=== PATIENT | male | born 1935 | race Hispanic/Latino ===

== ENCOUNTER 2018-05-13 08:49 | Outpatient (CLI) | payer MEDICARE | END 2018-05-13 08:50 | disposition home or self-care (01) | LOC: C.RT 08:49 | DX: C64.1 Malignant neoplasm of right kidney, except renal pelvis (principal) ==

== ENCOUNTER 2018-05-18 08:53 | Outpatient (CLI) | payer MEDICARE | END 2018-05-18 08:54 | disposition home or self-care (01) | LOC: C.RADH 08:53 | DX: C64.2 Malignant neoplasm of left kidney, except renal pelvis (principal) ==

== ENCOUNTER 2018-06-14 06:37 | Inpatient (IN) | payer MEDICARE ==
[2018-05-18 09:08] VITALS: BMI 22.4
[2018-06-14] MEDS ORDERED: Bupivacaine HCl 0.5% PF (10 ml) Inj ONE (07:35)
[2018-06-14] MEDS ORDERED: ceFAZolin 1 gm in NS 2 GM/200 ML BAG IVPB ONE (07:35)
[2018-06-14] MEDS ORDERED: Propofol 10 mg/ml Inj (20 ML) ONE (08:25)
[2018-06-14] MEDS ORDERED: Midazolam 2 MG/2 ML VIAL ONE (08:26)
[2018-06-14] MEDS ORDERED: Lactated Ringer's 1,000 ML IV ONE (10:12)
[2018-06-14] MEDS ORDERED: Neostigmine 1:1000 (1 mg/ml) Inj ONE (10:15)
--- NOTE | 2018-06-14 10:31 | PCM.SURG1 ---
Surgeon's Initial Post Op Note - Surgeon's Notes Surgeon: Eda Tavera Manager Store: Loli Andrew Type of Anesthesia: General Endo Pre-Operative Diagnosis: L renal tumor Operative Findings: same Post-Operative Diagnosis: same Operation Performed: Robot-assisted, Left laparoscopic radical nephrectomy Specimen/Specimens Removed: L kidney Estimated Blood Loss: EBL {In ML}: 50 Blood Products Given: N/A Drains Used: No Drains Post-Op Condition: Good Date of Surgery/Procedure: 06/14/18 Time of Surgery/Procedure: 10:00
[2018-06-14] MEDS: Potassium Ch 20mEq in D5-1/2NS 1,000 ML IV SCH ×2 (17:00→20:19)
[2018-06-14] MEDS: Oxycodone/Acetaminophen 5/325 mg Tab PO PRN (18:19)
[2018-06-14] MEDS ORDERED: Pantoprazole 40 mg EC Tab PO STA (19:29)
[2018-06-14] MEDS ORDERED: Simethicone 80 mg Chewtab PO STA (19:34)
[2018-06-14] MEDS: Simethicone 80 mg Chewtab PO SCH (21:19)
--- NOTE | 2018-06-14 23:06 | CP.PCM.PN ---
Subjective - Date & Time of Evaluation Date of Evaluation: 06/14/18 Time of Evaluation: 19:00 - Subjective Subjective: Patient underwent robot-assisted laparoscopic radical left nephrectomy for a left rnal tumor this AM. Now alert, oriented, in no respiratory distress. Complaining of pain at the surgical site, and bloating. Objective - Vital Signs/Intake and Output Vital Signs (last 24 hours): Temp Pulse Resp BP Pulse Ox 97.9 F 106 H 20 159/70 H 96 06/14/18 18:26 06/14/18 18:26 06/14/18 20:00 06/14/18 18:26 06/14/18 18:26 Intake and Output: 06/14/18 06/15/18 18:59 06:59 Intake Total 1200 Output Total 654 30 Balance 546 -30 - Medications Medications: Current Medications Alprazolam (Xanax) 0.5 mg PO TID PRN PRN Reason: Anxiety Last Admin: 06/14/18 21:19 Dose: 0.5 mg Docusate Sodium (Colace) 100 mg PO TID [facility] Last Admin: 06/14/18 18:43 Dose: 100 mg Potassium Chloride/Dextrose/Sod Cl (Potassium Chl 20 Meq In D5-1/2ns) 1,000 mls @ 100 mls/hr IV .Q10H [facility] Last Admin: 06/14/18 20:19 Dose: Not Given Ceftriaxone Sodium 1 gm/ (Sodium Chloride) 100 mls @ 100 mls/hr IVPB DAILY [facility]; Protocol Oxycodone/Acetaminophen (Percocet 5/325 Mg Tab) 1 tab PO Q4H PRN PRN Reason: Pain, moderate (4-7) Stop: 06/17/18 15:03 Oxycodone/Acetaminophen (Percocet 5/325 Mg Tab) 2 tab PO Q4H PRN PRN Reason: Pain, severe (8-10) Stop: 06/17/18 15:04 Last Admin: 06/14/18 18:19 Dose: 2 tab Pantoprazole Sodium (Protonix Ec Tab) 40 mg PO DAILY [facility] Simethicone (Mylicon Chew Tab) 80 mg PO QID [facility] Last Admin: 06/14/18 21:19 Dose: 80 mg - Constitutional Appears: Well, No Acute Distress - Head Exam Head Exam: NORMAL INSPECTION - Eye Exam Eye Exam: Normal appearance Pupil Exam: NORMAL ACCOMODATION - ENT Exam ENT Exam: Normal Exam - Neck Exam Neck Exam: Normal Inspection - Respiratory Exam Respiratory Exam: Clear to Ausculation Bilateral, NORMAL BREATHING PATTERN - Cardiovascular Exam Cardiovascular Exam: Tachycardia, REGULAR RHYTHM - GI/Abdominal Exam GI & Abdominal Exam: Soft, Diminished Bowel Sounds - Rectal Exam Rectal Exam: Deferred - Exam Exam: NORMAL INSPECTION External exam: Lesions - Extremities Exam Extremities Exam: Normal Inspection - Back Exam Back Exam: tenderness Additional comments: Left flank tenderness. - Neurological Exam Neurological Exam: Alert, Awake, Oriented x3 - Psychiatric Exam Psychiatric exam: Anxious - Skin Skin Exam: Dry, Intact, Normal Color Assessment and Plan (1) Left renal mass Assessment & Plan: S/p robot-assisted laparoscospic left total nephrectomy. Awaiting path report. Status: Acute (2) Coronary artery disease Assessment & Plan: Stable. Status: Acute
[2018-06-15] MEDS: Oxycodone/Acetaminophen 5/325 mg Tab PO PRN ×4 (00:11→20:48)
[2018-06-15 07:01] LABS: HEMOGLOBIN 10.5 g/dL (12.0-18.0); MEAN CELL VOLUME 70.3 fL (80.0-94.0); MEAN CORPUSCULAR HEMOGLOBIN 21.6 pg (27.0-31.0); MEAN CORPUSCULAR HGB CONC 30.8 g/dL (33.0-37.0); RBC 4.86 Mil/uL (4.40-5.90); RED CELL DISTRIBUTION WIDTH 18.2 % (11.5-14.5); WHITE BLOOD COUNT 6.2 K/uL (4.8-10.8)
[2018-06-15 07:12] LABS: BLOOD UREA NITROGEN 14 mg/dL (9-20); CALCIUM 8.7 mg/dl (8.6-10.4); GFR NON-AFRICAN AMERICAN > 60
--- NOTE | 2018-06-15 07:23 | OP ---
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 PROCEDURE PERFORMED: Left radical nephrectomy and thrombectomy, modified 22 due to the complexity of the case. Took more than 20 minutes of my usual time. COMPLICATIONS: None. TYPE OF ANESTHESIA: General. PREOPERATIVE ANTIBIOTICS: Ancef. DESCRIPTION OF PROCEDURE: The patient was taken to the OR, placed in supine position. After anesthetic was obtained, the patient was placed in left lateral position and all the pressure points were well padded and secured and then the patient was prepped in the usual manner. Then, incision was made lateral to the umbilicus at the umbilical level and deep into the subcutaneous tissue and then insufflation was done. Then 8 mm robotic port, total of 4 was placed and one 12 mm port was placed, then robot was docked. Then, adhesions were taken down and the colon was mobilized and kidney was mobilized, and then lower pole was identified. Gonadal was identified, adrenal was identified and then renal hilum was identified. We went below the proximal to the gonadal vein to the insertion of the renal vein due to the thrombus that was at the level of the gonadal vein. Once that was freed, the renal vein was completely freed and mobilized more than 6 cm in length. Thrombus was clearly seen, the demarcation of the thrombus. At that point, we went ahead and found the artery. Renal artery was taken separately with a vascular stapler. Then, a thrombus wall was squeezed distally and then stapler was placed well below that and then the was as well. Then, adrenal was dropped and freed. There was no tumor involvement of the adrenal gland that is why we spared it and that was in the lower pole. Then, upper pole was completely mobilized laterally. The kidney was mobilized. Distally, gonadal was taken as well. Ureter was taken and then kidney was placed in the bag and then hemostasis was checked, there was no bleeding. Surgicel was placed for further hemostasis and then all the ports were removed under direct vision. Specimen was removed. Then, fascia was closed using #1 PDS. Skin was reapproximated with staple. The patient tolerated the procedure well without complication. Jose Tavera MD [facility] # [id number]
[2018-06-15] MEDS: Potassium Ch 20mEq in D5-1/2NS 1,000 ML IV SCH ×3 (08:57→20:32)
[2018-06-15] MEDS: Simethicone 80 mg Chewtab PO SCH ×4 (09:51→21:42)
[2018-06-15] MEDS: Pantoprazole 40 mg EC Tab PO SCH (09:52)
--- NOTE | 2018-06-15 22:56 | CP.PCM.PN ---
Subjective - Date & Time of Evaluation Date of Evaluation: 06/15/18 Time of Evaluation: 16:30 - Subjective Subjective: Patient still with pain at the surgical incision. Afebrile, with no BM. Objective - Vital Signs/Intake and Output Vital Signs (last 24 hours): Temp Pulse Resp BP Pulse Ox 97.5 F L 97 H 20 166/85 H 96 06/15/18 15:30 06/15/18 15:30 06/15/18 15:30 06/15/18 15:30 06/15/18 15:30 Intake and Output: 06/15/18 06/16/18 18:59 06:59 Intake Total 500 Output Total 1500 Balance -1000 - Medications Medications: Current Medications Alprazolam (Xanax) 0.5 mg PO TID PRN PRN Reason: Anxiety Last Admin: 06/15/18 20:29 Dose: 0.5 mg Docusate Sodium (Colace) 100 mg PO TID [facility] Last Admin: 06/15/18 17:53 Dose: 100 mg Potassium Chloride/Dextrose/Sod Cl (Potassium Chl 20 Meq In D5-1/2ns) 1,000 mls @ 100 mls/hr IV .Q10H [facility] Last Admin: 06/15/18 20:32 Dose: 100 mls/hr Ceftriaxone Sodium 1 gm/ (Sodium Chloride) 100 mls @ 100 mls/hr IVPB DAILY [facility]; Protocol Last Admin: 06/15/18 09:52 Dose: 100 mls/hr Oxycodone/Acetaminophen (Percocet 5/325 Mg Tab) 1 tab PO Q4H PRN PRN Reason: Pain, moderate (4-7) Stop: 06/17/18 15:03 Last Admin: 06/15/18 09:51 Dose: 1 tab Oxycodone/Acetaminophen (Percocet 5/325 Mg Tab) 2 tab PO Q4H PRN PRN Reason: Pain, severe (8-10) Stop: 06/17/18 15:04 Last Admin: 06/15/18 20:48 Dose: 2 tab Pantoprazole Sodium (Protonix Ec Tab) 40 mg PO DAILY [facility] Last Admin: 06/15/18 09:52 Dose: 40 mg Simethicone (Mylicon Chew Tab) 80 mg PO QID [facility] Last Admin: 06/15/18 21:42 Dose: 80 mg Tamsulosin HCl (Flomax) 0.4 mg PO BID [facility] - Labs Labs: 06/15/18 06:54 06/15/18 06:54 - Constitutional Appears: No Acute Distress - Head Exam Head Exam: NORMAL INSPECTION - Eye Exam Eye Exam: Normal appearance - ENT Exam ENT Exam: Normal Exam - Neck Exam Neck Exam: Normal Inspection - Respiratory Exam Respiratory Exam: Clear to Ausculation Bilateral, NORMAL BREATHING PATTERN - Cardiovascular Exam Cardiovascular Exam: REGULAR RHYTHM - GI/Abdominal Exam GI & Abdominal Exam: Soft, Tenderness, Hypoactive Bowel Sounds Additional comments: Tender left flank. - Rectal Exam Rectal Exam: Deferred - Back Exam Back Exam: NORMAL INSPECTION - Neurological Exam Neurological Exam: Alert, Awake, Oriented x3 - Psychiatric Exam Psychiatric exam: Anxious - Skin Skin Exam: Normal Color, Warm Assessment and Plan (1) Left renal mass Assessment & Plan: S/p left nephrectomy PODD#1. Awaiting Path report. Status: Acute (2) Coronary artery disease Assessment & Plan: Stable. Status: Acute
--- NOTE | 2018-06-15 23:54 | PCM.URO ---
Urology Progress Note - General General: Tolerating Diet - Subjective Abdominal Pain: Yes Flank Pain: No Nausea: No Vomiting: No Voiding Well: No Hematuria: No Stone Passed: No Dsypnea: No Chest Pain: No Fever & Chills: No - Objective Lab Studies: Reviewed Lab Results Last 24 Hours: Laboratory Results - last 24 hr 06/15/18 06/15/18 06:54 06:54 WBC 6.2 RBC 4.86 Hgb 10.5 L Hct 34.1 L MCV 70.3 L MCH 21.6 L MCHC 30.8 L RDW 18.2 H Plt Count 432 H MPV 7.0 L Sodium 135 Potassium 4.5 Chloride 99 Carbon Dioxide 32 H Anion Gap 9 L BUN 14 Creatinine 1.0 Est GFR ( Amer) > 60 Est GFR (Non-Af Amer) > 60 Random Glucose 101 Calcium 8.7 Intake & Output: Intake & Output 06/15/18 06/15/18 06/16/18 06:59 18:59 06:59 Intake Total 800 500 Output Total 2029 1500 Balance -1230 -1000 Intake: Intake, IV Amount 800 500 Right Forearm 800 500 Output: Urine 2029 1500 2-way Urethral 2029 1200 Urine, Voided 300 Other: Voiding Method Indwelling Catheter # Bowel Movements 0 Vital Signs: Vital Signs - 24 hr 06/15/18 06/15/18 07:25 15:30 Temperature 97.8 F 97.5 F L Pulse Rate 95 H 97 H Respiratory 20 20 Rate Blood Pressure 157/81 H 166/85 H O2 Sat by Pulse 95 96 Oximetry - Physical Exam Abdominal Exam: Soft, Non-Tender (AWAKE AND ALERT LUNGS: CLEAR TO P&A HEART: REG RHYTHM). absent: Non-Distended Bowel Sounds: Hypoactive Dressing: Dry, Intact Back: No CVA Tenderness Genitalia: Without Inflammation Extremities: Normal: Bilateral - Male Phallus: Normal - Plan Discontinue Urinary Catheter: Yes Wound Care: Yes Intake & Output: Yes See Orders: Yes Additional Information: IMP;. PROGRESSING WELL, AFTER L NEPHRECTOMY. BPH. ANXIETY. COPD. HYPERTENSION. P: D/C [facility] CATH. AMBULATORY. DISCUSSED W PT AND NURSING STAFF. CLEAR LIQUID DIET. TAMSULOSIN. YS - Date & Time of Note Date: 06/15/18 Time: 10:15
[2018-06-16] MEDS: Potassium Ch 20mEq in D5-1/2NS 1,000 ML IV SCH ×4 (03:36→22:45)
[2018-06-16] MEDS: Oxycodone/Acetaminophen 5/325 mg Tab PO PRN ×4 (03:40→23:04)
[2018-06-16] MEDS: Pantoprazole 40 mg EC Tab PO SCH (09:14)
[2018-06-16] MEDS: Simethicone 80 mg Chewtab PO SCH ×4 (09:14→21:31)
--- NOTE | 2018-06-16 20:30 | CP.PCM.PN ---
Subjective - Date & Time of Evaluation Date of Evaluation: 06/16/18 Time of Evaluation: 20:28 - Subjective Subjective: Patient complaining of gas pain. No BM yet. Still slightly dizzy, but tolerated foods well. Afebrile. To recheck CBC and CMP. To continue IV antibiotic, analgesics. Objective - Vital Signs/Intake and Output Vital Signs (last 24 hours): Temp Pulse Resp BP Pulse Ox 97.6 F 92 H 20 162/78 H 97 06/16/18 15:35 06/16/18 15:35 06/16/18 15:35 06/16/18 15:35 06/16/18 15:35 - Medications Medications: Current Medications Alprazolam (Xanax) 0.5 mg PO TID PRN PRN Reason: Anxiety Last Admin: 06/16/18 09:14 Dose: 0.5 mg Clopidogrel Bisulfate (Plavix) [address] [facility] Last Admin: 06/16/18 09:14 Dose: 75 mg Docusate Sodium (Colace) [address] [facility] Last Admin: 06/16/18 18:12 Dose: 100 mg Potassium Chloride/Dextrose/Sod Cl (Potassium Chl 20 Meq In D5-1/2ns) 1,000 mls @ 100 mls/hr IV .Q10H [facility] Last Admin: 06/16/18 18:15 Dose: 100 mls/hr Ceftriaxone Sodium 1 gm/ (Sodium Chloride) 100 mls @ 100 mls/hr IVPB DAILY [facility]; Protocol Last Admin: 06/16/18 09:14 Dose: 100 mls/hr Lactulose (Enulose) [address] [facility] Last Admin: 06/15/18 23:41 Dose: 20 gm Oxycodone/Acetaminophen (Percocet 5/325 Mg Tab) 1 tab PO Q4H PRN PRN Reason: Pain, moderate (4-7) Stop: 06/17/18 15:03 Last Admin: 06/16/18 18:13 Dose: 1 tab Oxycodone/Acetaminophen (Percocet 5/325 Mg Tab) 2 tab PO Q4H PRN PRN Reason: Pain, severe (8-10) Stop: 06/17/18 15:04 Last Admin: 06/16/18 11:59 Dose: 2 tab Pantoprazole Sodium (Protonix Ec Tab) [address] [facility] Last Admin: 06/16/18 09:14 Dose: 40 mg Simethicone (Mylicon Chew Tab) [address] [facility] Last Admin: 06/16/18 18:12 Dose: 80 mg Tamsulosin HCl (Flomax) 0.[address] [facility] Last Admin: 06/16/18 18:11 Dose: 0.4 mg Zolpidem Tartrate (Ambien) 5 mg PO HS PRN PRN Reason: Insomnia - Labs Labs: 06/15/18 06:54 06/15/18 06:54 - Constitutional Appears: No Acute Distress - Head Exam Head Exam: NORMAL INSPECTION - Eye Exam Eye Exam: Normal appearance Pupil Exam: NORMAL ACCOMODATION - ENT Exam ENT Exam: Normal Exam - Neck Exam Neck Exam: Normal Inspection - Respiratory Exam Respiratory Exam: Clear to Ausculation Bilateral, NORMAL BREATHING PATTERN - Cardiovascular Exam Cardiovascular Exam: REGULAR RHYTHM - GI/Abdominal Exam GI & Abdominal Exam: Distended, Hypoactive Bowel Sounds - Rectal Exam Rectal Exam: Deferred - Exam Exam: NORMAL INSPECTION - Back Exam Back Exam: tenderness - Neurological Exam Neurological Exam: Alert, Awake, Oriented x3 - Psychiatric Exam Psychiatric exam: Anxious - Skin Skin Exam: Dry, Normal Color, Warm Assessment and Plan (1) Left renal mass Assessment & Plan: S/p left nephrectomy, POD# 2. Awaiting Path report. Status: Acute (2) Coronary artery disease Assessment & Plan: Stable. Status: Acute
--- NOTE | 2018-06-17 00:29 | PCM.URO ---
Urology Progress Note - General General: Tolerating Diet - Subjective Abdominal Pain: Yes Flank Pain: No Nausea: No Vomiting: No Voiding Well: Yes Dysuria: No Hematuria: No Good Stream: Yes Dsypnea: No Chest Pain: No Fever & Chills: No Other: No flatus. No BM - Objective Lab Studies: Reviewed Intake & Output: Intake & Output 06/16/18 06/16/18 06/17/18 06:59 18:59 06:59 Intake Total 2260 1200 Output Total 975 850 Balance 1285 350 Intake: Intake, IV Amount 1600 800 Right Forearm 1600 800 Oral 660 400 Output: Urine 975 850 Urine, Voided 975 850 Other: # Bowel Movements 0 Vital Signs: Vital Signs - 24 hr 06/16/18 06/16/18 07:20 15:35 Temperature 97.9 F 97.6 F Pulse Rate 111 H 92 H Respiratory 20 20 Rate Blood Pressure 145/69 162/78 H O2 Sat by Pulse 98 97 Oximetry - Physical Exam Abdominal Exam: Soft, Non-Tender. absent: Non-Distended Bowel Sounds: Hypoactive Dressing: Dry, Intact Back: No CVA Tenderness (Lungs: clesr to P&A Heart: _ reg rhythm) Genitalia: Without Inflammation Urinary Catheter Draining Well: No Urine Color: Clear, Yellow Extremities: Normal: Bilateral - Plan Pulmonary Toilet: Yes Ambulation - Out of Bed: Yes Intake & Output: Yes Additional Information: IMP: stable overall. await return of GI function. Pt received a laxative - Date & Time of Note Date: 06/16/18 Time: 08:45
[2018-06-17] MEDS: Potassium Ch 20mEq in D5-1/2NS 1,000 ML IV SCH ×2 (05:51→13:38)
[2018-06-17 08:04] LABS: BASO % 0.5 % (0.0-2.0); EOS # 0.3 K/uL (0.0-0.7); EOS % 3.8 % (0.0-4.0); HEMOGLOBIN 11.3 g/dL (12.0-18.0); LYMPH # 0.8 K/uL (1.0-4.3); MEAN CELL VOLUME 71.3 fL (80.0-94.0); MEAN CORPUSCULAR HEMOGLOBIN 21.7 pg (27.0-31.0); MEAN CORPUSCULAR HGB CONC 30.4 g/dL (33.0-37.0); MEAN PLATELET VOLUME 7.4 fL (7.2-11.7); MONO # 0.5 K/uL (0.0-0.8); MONO % 7.4 % (0.0-10.0); NEUT # 5.3 K/uL (1.8-7.0); NEUT % 76.3 % (50.0-75.0); NRBC % 0.1 % (0.0-2.0); RBC 5.21 Mil/uL (4.40-5.90); RED CELL DISTRIBUTION WIDTH 18.7 % (11.5-14.5)
[2018-06-17 08:44] LABS: ALB/GLOB RATIO 1.1 (1.0-2.1); ALBUMIN 3.6 g/dL (3.5-5.0); ALT/SGPT 24 U/L (21-72); AST/SGOT 26 U/L (17-59); BLOOD UREA NITROGEN 8 mg/dL (9-20); CALCIUM 8.5 mg/dl (8.6-10.4); GFR NON-AFRICAN AMERICAN > 60
[2018-06-17] MEDS: Pantoprazole 40 mg EC Tab PO SCH (09:23)
[2018-06-17] MEDS: Simethicone 80 mg Chewtab PO SCH ×4 (09:23→21:53)
[2018-06-17] MEDS: Oxycodone/Acetaminophen 5/325 mg Tab PO PRN ×3 (12:12→21:45)
--- NOTE | 2018-06-17 22:31 | CP.PCM.PN ---
Subjective - Date & Time of Evaluation Date of Evaluation: 06/17/18 Time of Evaluation: 16:30 - Subjective Subjective: Patient complaining of abdominal distension, pain and constipation. Afebrile, no nausea or vomting. Did not have any flatus, but has hypoactive BS.Will get an obstructive series before ordering fleet enema. Objective - Vital Signs/Intake and Output Vital Signs (last 24 hours): Temp Pulse Resp BP Pulse Ox 97.8 F 74 20 171/57 H 98 06/17/18 15:00 06/17/18 15:00 06/17/18 15:00 06/17/18 15:00 06/17/18 15:00 Intake and Output: 06/17/18 06/18/18 18:59 06:59 Output Total 850 Balance -850 - Medications Medications: Current Medications Alprazolam (Xanax) 0.5 mg PO TID PRN PRN Reason: Anxiety Last Admin: 06/17/18 16:58 Dose: 0.5 mg Clopidogrel Bisulfate (Plavix) [address] [facility] Last Admin: 06/17/18 09:23 Dose: 75 mg Docusate Sodium (Colace) [address] [facility] Last Admin: 06/17/18 18:09 Dose: 100 mg Escitalopram Oxalate (Lexapro) [address] [facility] Last Admin: 06/17/18 18:12 Dose: 20 mg Ceftriaxone Sodium 1 gm/ (Sodium Chloride) 100 mls @ 100 mls/hr IVPB DAILY [facility]; Protocol Last Admin: 06/17/18 09:22 Dose: 100 mls/hr Lactulose (Enulose) 20 gm PO [facility] Last Admin: 06/17/18 21:53 Dose: 20 gm Oxycodone/Acetaminophen (Percocet 5/325 Mg Tab) 2 tab PO Q4H PRN PRN Reason: Pain, moderate (4-7) Stop: 06/20/18 18:01 Last Admin: 06/17/18 21:45 Dose: 2 tab Pantoprazole Sodium (Protonix Ec Tab) [address] [facility] Last Admin: 06/17/18 09:23 Dose: 40 mg Simethicone (Mylicon Chew Tab) [address] [facility] Last Admin: 06/17/18 21:53 Dose: 80 mg Tamsulosin HCl (Flomax) 0.[address] [facility] Last Admin: 06/17/18 18:08 Dose: 0.4 mg Zolpidem Tartrate (Ambien) 5 mg PO HS PRN PRN Reason: Insomnia Last Admin: 06/16/18 22:34 Dose: 5 mg - Labs Labs: 06/17/18 07:48 06/17/18 07:48 - Constitutional Appears: No Acute Distress, Chronically Ill - Head Exam Head Exam: NORMOCEPHALIC - Eye Exam Eye Exam: Normal appearance - ENT Exam ENT Exam: Normal Exam - Neck Exam Neck Exam: Normal Inspection - Respiratory Exam Respiratory Exam: Clear to Ausculation Bilateral, NORMAL BREATHING PATTERN - Cardiovascular Exam Cardiovascular Exam: REGULAR RHYTHM - GI/Abdominal Exam GI & Abdominal Exam: Distended, Tenderness, Hypoactive Bowel Sounds - Exam Exam: NORMAL INSPECTION - Extremities Exam Extremities Exam: Normal Inspection - Back Exam Back Exam: NORMAL INSPECTION - Neurological Exam Neurological Exam: Alert, Awake, Oriented x3 - Psychiatric Exam Psychiatric exam: Anxious - Skin Skin Exam: Dry, Intact, Normal Color, Warm Assessment and Plan (1) Left renal mass Assessment & Plan: S/p left nephrectomy POD# 3. Still with severe abdominal ileus and no BM. Status: Acute (2) Coronary artery disease Status: Acute
[2018-06-18] MEDS: Simethicone 80 mg Chewtab PO SCH ×4 (10:10→22:07)
[2018-06-18] MEDS: Pantoprazole 40 mg EC Tab PO SCH (10:13)
[2018-06-18] MEDS: Oxycodone/Acetaminophen 5/325 mg Tab PO PRN ×5 (10:27→21:45)
--- NOTE | 2018-06-18 13:38 | RAD ---
Date of service: 06/17/2018 PROCEDURE: Radiographs of the chest and abdomen (obstructive series) HISTORY: Abdominal pain with distention and constipation. COMPARISON: No prior. TECHNIQUE: AP radiograph of the chest, with upright and supine radiographs of the abdomen. FINDINGS: CHEST: Lungs: Clear. Cardiovascular: Normal size heart. No pulmonary vascular congestion. No aortic atherosclerotic calcification present Pleura: No pleural fluid. No pneumothorax. Other findings: None. ABDOMEN AND PELVIS: Bowel: Dilated loops of small and large bowel associated with air-fluid levels. Likely ileus. Left lower quadrant surgical marina are noted. Status post cholecystectomy. Free air: There is free intraperitoneal air seen. Bones: Unremarkable. Other findings: None. IMPRESSION: Probable adynamic ileus. Free intraperitoneal air consistent with recent post nephrectomy status, via anterior approach.. Postoperative marina.
--- NOTE | 2018-06-18 21:17 | CP.PCM.PN ---
Subjective - Date & Time of Evaluation Date of Evaluation: 06/18/18 Time of Evaluation: 21:15 - Subjective Subjective: Patient still with abdominal distention and tenderness. Had a small BM last night following a fleet enema. Appetite is poor because of the abdominal pain. No nausea or vomiting. No fever. Objective - Vital Signs/Intake and Output Vital Signs (last 24 hours): Temp Pulse Resp BP Pulse Ox 97.5 F L 100 H 20 126/69 97 06/18/18 15:30 06/18/18 15:30 06/18/18 15:30 06/18/18 15:30 06/18/18 15:30 Intake and Output: 06/18/18 06/19/18 18:59 06:59 Intake Total 580 Output Total 700 Balance -120 - Medications Medications: Current Medications Alprazolam (Xanax) 0.5 mg PO TID PRN PRN Reason: Anxiety Last Admin: 06/18/18 04:35 Dose: 0.5 mg Clopidogrel Bisulfate (Plavix) 75 mg PO DAILY [facility] Last Admin: 06/18/18 10:12 Dose: 75 mg Docusate Sodium (Colace) 100 mg PO TID [facility] Last Admin: 06/18/18 17:23 Dose: 100 mg Escitalopram Oxalate (Lexapro) 20 mg PO DAILY [facility] Last Admin: 06/18/18 10:12 Dose: 20 mg Ceftriaxone Sodium 1 gm/ (Sodium Chloride) 100 mls @ 100 mls/hr IVPB DAILY [facility]; Protocol Last Admin: 06/18/18 10:13 Dose: 100 mls/hr Lactulose (Enulose) 20 gm PO [facility] Last Admin: 06/17/18 21:53 Dose: 20 gm Oxycodone/Acetaminophen (Percocet 5/325 Mg Tab) 2 tab PO Q4H PRN PRN Reason: Pain, moderate (4-7) Stop: 06/20/18 18:01 Last Admin: 06/18/18 15:44 Dose: 2 tab Pantoprazole Sodium (Protonix Ec Tab) 40 mg PO DAILY [facility] Last Admin: 06/18/18 10:13 Dose: 40 mg Simethicone (Mylicon Chew Tab) 80 mg PO QID [facility] Last Admin: 06/18/18 17:23 Dose: 80 mg Tamsulosin HCl (Flomax) 0.4 mg PO BID [facility] Last Admin: 06/18/18 17:23 Dose: 0.4 mg Zolpidem Tartrate (Ambien) 5 mg PO HS PRN PRN Reason: Insomnia Last Admin: 06/16/18 22:34 Dose: 5 mg - Labs Labs: 06/17/18 07:48 06/17/18 07:48 - Constitutional Appears: No Acute Distress, Chronically Ill - Head Exam Head Exam: NORMAL INSPECTION - Eye Exam Eye Exam: Normal appearance Pupil Exam: NORMAL ACCOMODATION - ENT Exam ENT Exam: Normal Exam - Neck Exam Neck Exam: Normal Inspection - Respiratory Exam Respiratory Exam: Clear to Ausculation Bilateral, NORMAL BREATHING PATTERN - Cardiovascular Exam Cardiovascular Exam: REGULAR RHYTHM - GI/Abdominal Exam GI & Abdominal Exam: Distended, Tenderness, Diminished Bowel Sounds - Rectal Exam Rectal Exam: Deferred - Extremities Exam Extremities Exam: Normal Inspection - Back Exam Back Exam: NORMAL INSPECTION - Neurological Exam Neurological Exam: Alert, Awake, Oriented x3 - Psychiatric Exam Psychiatric exam: Anxious - Skin Skin Exam: Dry, Intact, Normal Color, Warm Assessment and Plan (1) Left renal mass Assessment & Plan: S/p left total nephrectomy POD # 4. Still with severe intestinal ileus. Status: Acute (2) Coronary artery disease Assessment & Plan: Stable. Status: Acute
--- NOTE | 2018-06-18 23:38 | PCM.URO ---
Urology Progress Note - General General: Tolerating Diet - Subjective Abdominal Pain: Yes Flank Pain: No Nausea: Yes Vomiting: No Voiding Well: Yes Dysuria: No Hematuria: No Urinary Urgency: No Frequency: No Good Stream: Yes Weak Stream: No Stone Passed: No Dsypnea: No Chest Pain: No Fever & Chills: No Other: pt reports small BM yesterday. he notes abd pain, ;ower abd and L side of abd - Objective Lab Studies: Reviewed Intake & Output: Intake & Output 06/18/18 06/18/18 06/19/18 06:59 18:59 06:59 Intake Total 480 580 480 Output Total 600 700 400 Balance -120 -120 80 Intake: Intake, IV Amount 100 Right Forearm 100 Oral 480 480 480 Output: Urine 600 700 400 Urine, Voided 600 700 400 Other: # Bowel Movements 1 1 Vital Signs: Vital Signs - 24 hr 06/18/18 06/18/18 06/18/18 02:00 04:00 07:00 Temperature 97.5 F L 87.8 F L 98.1 F Pulse Rate 91 H 93 H 80 Respiratory 20 18 20 Rate Blood Pressure 158/88 H 184/64 H 168/79 H O2 Sat by Pulse 95 95 95 Oximetry 06/18/18 15:30 Temperature 97.5 F L Pulse Rate 100 H Respiratory 20 Rate Blood Pressure 126/69 O2 Sat by Pulse 97 Oximetry - Physical Exam Abdominal Exam: Soft. absent: Non-Tender, Non-Distended Bowel Sounds: Normal Wound: Clean Dressing: Dry Back: No CVA Tenderness Genitalia: Without Inflammation - Male Phallus: Normal Scrotum: Normal Testes: Normal: Bilateral - Plan Wound Care: Yes Ambulation - Out of Bed: Yes Discontinue Intravenous Fluids: Yes Intake & Output: Yes Additional Information: Await return of GI function. Discussed w pt and w nursing staff
[2018-06-19] MEDS: Oxycodone/Acetaminophen 5/325 mg Tab PO PRN ×2 (05:24→21:36)
[2018-06-19] MEDS: Simethicone 80 mg Chewtab PO SCH ×4 (10:23→21:36)
[2018-06-19] MEDS: Pantoprazole 40 mg EC Tab PO SCH (10:23)
--- NOTE | 2018-06-19 15:51 | CP.PCM.PN ---
Subjective - Date & Time of Evaluation Date of Evaluation: 06/19/18 Time of Evaluation: 15:48 - Subjective Subjective: Patient still has abdominal distention, and constipation. Appetite is poor. Will order a fleet enema tonight. Objective - Vital Signs/Intake and Output Vital Signs (last 24 hours): Temp Pulse Resp BP Pulse Ox 98.0 F 91 H 20 131/54 L 96 06/19/18 09:08 06/19/18 09:08 06/19/18 09:08 06/19/18 09:08 06/19/18 09:08 Intake and Output: 06/19/18 06/19/18 06:59 18:59 Intake Total 600 Output Total 800 Balance -200 - Medications Medications: Current Medications Alprazolam (Xanax) 0.5 mg PO TID PRN PRN Reason: Anxiety Last Admin: 06/18/18 22:10 Dose: 0.5 mg Clopidogrel Bisulfate (Plavix) 75 mg PO DAILY [facility] Last Admin: 06/19/18 10:23 Dose: 75 mg Docusate Sodium (Colace) 100 mg PO TID [facility] Last Admin: 06/19/18 14:03 Dose: 100 mg Escitalopram Oxalate (Lexapro) 20 mg PO DAILY [facility] Last Admin: 06/19/18 10:23 Dose: 20 mg Ceftriaxone Sodium 1 gm/ (Sodium Chloride) 100 mls @ 100 mls/hr IVPB DAILY [facility]; Protocol Last Admin: 06/19/18 10:22 Dose: 100 mls/hr Lactulose (Enulose) 20 gm PO HS [facility] Last Admin: 06/18/18 22:07 Dose: 20 gm Oxycodone/Acetaminophen (Percocet 5/325 Mg Tab) 2 tab PO Q4H PRN PRN Reason: Pain, moderate (4-7) Stop: 06/20/18 18:01 Last Admin: 06/19/18 05:24 Dose: 2 tab Pantoprazole Sodium (Protonix Ec Tab) 40 mg PO DAILY [facility] Last Admin: 06/19/18 10:23 Dose: 40 mg Simethicone (Mylicon Chew Tab) 80 mg PO QID [facility] Last Admin: 06/19/18 15:47 Dose: Not Given Sodium Phosphate (Fleet Enema) 135 ml [place] ONCE ONE Stop: 06/19/18 15:48 Tamsulosin HCl (Flomax) 0.4 mg PO BID [facility] Last Admin: 06/19/18 10:22 Dose: 0.4 mg Zolpidem Tartrate (Ambien) 5 mg PO HS PRN PRN Reason: Insomnia Last Admin: 06/18/18 22:10 Dose: 5 mg - Labs Labs: 06/17/18 07:48 06/17/18 07:48 - Constitutional Appears: No Acute Distress, Chronically Ill - Head Exam Head Exam: NORMAL INSPECTION - Eye Exam Eye Exam: Normal appearance Pupil Exam: NORMAL ACCOMODATION - ENT Exam ENT Exam: Normal Exam - Neck Exam Neck Exam: Normal Inspection - Respiratory Exam Respiratory Exam: Clear to Ausculation Bilateral, NORMAL BREATHING PATTERN - Cardiovascular Exam Cardiovascular Exam: REGULAR RHYTHM - GI/Abdominal Exam GI & Abdominal Exam: Distended, Tenderness, Diminished Bowel Sounds - Rectal Exam Rectal Exam: Deferred - Exam Exam: NORMAL INSPECTION - Extremities Exam Extremities Exam: Normal Inspection - Back Exam Back Exam: NORMAL INSPECTION - Neurological Exam Neurological Exam: Alert, Awake, Oriented x3 - Psychiatric Exam Psychiatric exam: Anxious - Skin Skin Exam: Intact, Normal Color Assessment and Plan (1) Left renal mass Assessment & Plan: S/p left nephrectomy POD:# 5. Path report: invasive carcinoma. Will ask for an Oncology evaluation. Status: Acute (2) Coronary artery disease Assessment & Plan: Stable. Status: Acute
[2018-06-20] MEDS: Oxycodone/Acetaminophen 5/325 mg Tab PO PRN (06:27)
[2018-06-20] MEDS: Simethicone 80 mg Chewtab PO SCH ×4 (10:30→21:37)
[2018-06-20] MEDS: Pantoprazole 40 mg EC Tab PO SCH (10:30)
[2018-06-21 02:51] VITALS: RESP 20
[2018-06-21] MEDS: Pantoprazole 40 mg EC Tab PO SCH (10:37)
[2018-06-21] MEDS: Simethicone 80 mg Chewtab PO SCH ×4 (10:37→22:10)
--- NOTE | 2018-06-21 11:36 | PCM.PSYCH ---
Initial Psychiatric Evaluation - Initial Psychiatric Evaluation Type of Admission: Voluntary Legal Status: Capacity Chief Complaint (in patient's own words): I am frustrated.' History of Present Illness and Precipitating Events: This is an 83 year old man who is single with no children, living in a house with his brother, and unemployed. He presented to the hospital for surgery to remove a kidney tumor. Psych was consulted for depressive symptoms and paranoia. Patient admits he is feeling terribly depressed, having difficulty sleeping, has no appetite, no energy, difficulty concentration, and feeling like he does not enjoy the same things he used too in life. He states he has felt depressed for many years because his attraction for the same sex caused issues with his family and his own Taoist joie, but he feels much worse since his cancer diagnosis. Patient admits to having a vivid spiritual experience where he spoke with God and Leonardo about the nature of life and his sickness. Patient admits to constantly worrying about why he was chosen to get cancer. He feels Patient denies previously admissions for psychiatric illnesses. He confirms speaking to a therapist for the 22 years, but stopped going one year ago. Patient denies a history of suicide attempts, current suicidal or homicidal ideations. He does at times have a passive wish to . Patient denies auditory or visual hallucinations or paranoia. Patient denies drug use. No manic symptoms were reported or elicited. PsychHx: anxiety MedHx: IBS, left renal tumor Allergies: denies Meds: tamulosin, simvastatin, clopidogrel, alprazolam SurgHx: left robot assisted radical nephrectomy Current Medications: Active Medications Generic Name Dose Route Start Last Admin Trade Name Uche PRN Reason Stop Dose Admin Alprazolam 0.5 mg 06/14/18 19:31 06/21/18 10:37 Xanax PO 0.5 mg TID PRN Administration Anxiety Clopidogrel Bisulfate 75 mg 06/16/18 10:00 06/21/18 10:37 Plavix PO 75 mg DAILY [facility] Administration Docusate Sodium 100 mg 06/14/18 18:00 06/21/18 10:39 Colace PO Not Given TID [facility] Escitalopram Oxalate 20 mg 06/17/18 18:00 06/21/18 10:37 Lexapro PO 20 mg DAILY [facility] Administration Lactulose 20 gm 06/15/18 23:00 06/20/18 21:37 Enulose PO 20 gm HS [facility] Administration Pantoprazole Sodium 40 mg 06/15/18 10:00 06/21/18 10:37 Protonix Ec Tab PO 40 mg DAILY [facility] Administration Simethicone 80 mg 06/14/18 22:00 06/21/18 10:37 Mylicon Chew Tab PO 80 mg QID [facility] Administration Tamsulosin HCl 0.4 mg 06/16/18 10:00 06/21/18 10:37 Flomax PO 0.4 mg BID [facility] Administration Zolpidem Tartrate 5 mg 06/16/18 20:25 06/18/18 22:10 Ambien PO 5 mg HS PRN Administration Insomnia Past Psychiatric History - Past Psychiatric History Previous Treatment History: None Pertinent Medical Hx (Current Medical&Sleep Prob, Allergies): Allergies Allergy/AdvReac Type Severity Reaction Status Date / Time No Known Allergies Allergy Verified 05/18/18 09:06 Alprazolam 0.5 mg PO TID 05/18/18 Clopidogrel [Plavix] 75 mg PO DAILY 05/18/18 Dexlansoprazole [Dexilant] 60 mg PO DAILY 05/18/18 Finasteride [Proscar] 5 mg PO DAILY 05/18/18 Montelukast Sodium [Singulair] 10 mg PO DAILY 05/18/18 Simvastatin 40 mg PO DAILY 05/18/18 Tamsulosin HCl [Flomax] 0.4 mg PO DAILY 05/18/18 Review of Systems - Review of Systems All systems: reviewed and no additional remarkable complaints except - Psychiatric Psychiatric: Anxiety, Depression, Irritability. absent: Auditory Hallucinations, Suicidal Ideation Mental Status Examination - Personal Presentation Personal Presentation: Looks stated age - Affect Affect: Constricted - Motor Activity Motor Activity: Calm - Reliability in Providing Information Reliability in Providing Information: Fair - Speech Speech: Organized - Mood Mood: Anxious - Formal Thought Process Formal Thought Process: No Impairment - Obsessions/Compulsions Obsessions: No Compulsions: No - Cognitive Functions Orientation: Person, Place, Situation, Time Sensorium: Alert Attention/Concentration: Attentive Abstract Thinking: Dozier Estimate of Intelligence: Below average Judgement: Imparied, as evidence by: Poor judgement, Intact, as evidence by: Insight regarding need for hospitalization - Risk Risk: Diminished functioning - Limitations Limitations: Living alone DSM 5 DX - DSM 5 DSM 5 Diagnosis: Delirium Depressive disorder - Recommended/Plan of Treatment Treatment Recommendations and Plan of Treatment: Patient psychiatrically stable and cleared for discharge
--- NOTE | 2018-06-21 17:21 | CP.PCM.CON ---
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 The patient has been depressed since knowing his diagnosis of cancer, unable to eat, losing weight and in bed most of the time. He is c/o abdominal pain, constipation, denies nausea and vomiting. Past Patient History - Past Medical History & Family History Past Medical History?: Yes - Past Social History Smoking Status: Former Smoker - CARDIAC Hx Cardiac Disorders: Yes Hx Hypercholesterolemia: Yes - PULMONARY Hx Respiratory Disorders: Yes Hx Emphysema: Yes Hx Pneumonia: Yes (5 years ago) - NEUROLOGICAL Hx Neurological Disorder: No - HEENT Hx HEENT Problems: Yes Hx Sinusitis: Yes - RENAL Hx Chronic Kidney Disease: Yes (Left renal tumor) Hx Kidney Stones: Yes - ENDOCRINE/METABOLIC Hx Endocrine Disorders: No - HEMATOLOGICAL/ONCOLOGICAL Hx Blood Disorders: Yes Hx Shingles: Yes - INTEGUMENTARY Hx Dermatological Problems: No - MUSCULOSKELETAL/RHEUMATOLOGICAL Hx Falls: No - GASTROINTESTINAL Hx Gastrointestinal Disorders: Yes (Spastic colon) Hx Gall Bladder Disease: Yes Hx Ulcer: Yes - GENITOURINARY/GYNECOLOGICAL Hx Genitourinary Disorders: Yes Hx Prostate Problems: Yes - PSYCHIATRIC Hx Substance Use: No - SURGICAL HISTORY Hx Surgeries: Yes Hx Cardiac Catheterization: Yes (2 years ago) Hx Cholecystectomy: Yes Hx Coronary Stent: Yes (2 years ago) - ANESTHESIA Hx Anesthesia: Yes Hx Anesthesia Reactions: No Hx Malignant Hyperthermia: No Has any member of the family had a problem w/ anesthesia?: No Meds Allergies/Adverse Reactions: Allergies Allergy/AdvReac Type Severity Reaction Status Date / Time No Known Allergies Allergy Verified 05/18/18 09:06 - Medications Medications: Current Medications Alprazolam (Xanax) 0.5 mg PO TID PRN PRN Reason: Anxiety Last Admin: 06/21/18 10:37 Dose: 0.5 mg Clopidogrel Bisulfate (Plavix) 75 mg PO DAILY [facility] Last Admin: 06/21/18 10:37 Dose: 75 mg Docusate Sodium (Colace) 100 mg PO TID [facility] Last Admin: 06/21/18 13:20 Dose: Not Given Escitalopram Oxalate (Lexapro) 20 mg PO DAILY [facility] Last Admin: 06/21/18 10:37 Dose: 20 mg Lactulose (Enulose) 20 gm PO HS [facility] Last Admin: 06/20/18 21:37 Dose: 20 gm Pantoprazole Sodium (Protonix Ec Tab) 40 mg PO DAILY [facility] Last Admin: 06/21/18 10:37 Dose: 40 mg Simethicone (Mylicon Chew Tab) 80 mg PO QID [facility] Last Admin: 06/21/18 14:53 Dose: 80 mg Tamsulosin HCl (Flomax) 0.4 mg PO BID [facility] Last Admin: 06/21/18 10:37 Dose: 0.4 mg Zolpidem Tartrate (Ambien) 5 mg PO HS PRN PRN Reason: Insomnia Last Admin: 06/18/18 22:10 Dose: 5 mg Results - Vital Signs Recent Vital Signs: Last Vital Signs Temp 976.6 F H 06/21/18 07:20 Pulse 103 H 06/21/18 07:20 Resp 20 06/21/18 07:20 BP 170/78 H 06/21/18 07:20 Pulse Ox 97 06/21/18 07:20 - Labs Result Diagrams: 06/17/18 07:48 06/17/18 07:48 Labs: Laboratory Results - last 24 hr 06/21/18 16:44 POC Glucose (mg/dL) 122 H Assessment & Plan (1) Renal cancer Assessment and Plan: 83 yo man with left renal clear cell cancer, s/p RALRadical nephrectomy, tumor invading the left renal vein. At this time will not recommend adjuvant therapy, despite high risk features. Will wait till patient is ambulatory, performing ADLs and tolerating regular diet. Adjuvant therapy is controversial even in high risk RCCa because of the lack of overall survival. Status: Acute (2) Left renal mass Status: Acute
--- NOTE | 2018-06-21 19:42 | PCM.URO ---
Urology Progress Note - General General: Tolerating Diet - Subjective Abdominal Pain: Yes (Had BM) Flank Pain: No Nausea: No Vomiting: No Voiding Well: Yes Dysuria: No Hematuria: No Good Stream: Yes Dsypnea: No Chest Pain: No Fever & Chills: No Other: Anxious. Poss depressed about illness. Pt feels he is not doing well - Objective Lab Results Last 24 Hours: Laboratory Results - last 24 hr 06/21/18 16:44 POC Glucose (mg/dL) 122 H Intake & Output: Intake & Output 06/21/18 06/21/18 06/22/18 06:59 18:59 06:59 Intake Total 720 300 Output Total 700 1200 Balance 20 -900 Intake: Oral 720 300 Output: Urine 700 1200 2-way Urethral 700 Urine, Voided 1200 Other: # Voids Urine, Voided 3 # Bowel Movements 3 Vital Signs: Vital Signs - 24 hr 06/20/18 06/21/18 06/21/18 23:25 07:20 15:15 Temperature 97.1 F L 976.6 F H 97.6 F Pulse Rate 102 H 103 H 97 H Respiratory 20 20 20 Rate Blood Pressure 137/80 170/78 H 149/83 O2 Sat by Pulse 94 L 97 97 Oximetry - Physical Exam Abdominal Exam: Soft (Lungs: clear to P&A Heart : reg rhythm), Non-Tender, Non- Distended Bowel Sounds: Normal Wound: Clean, Healing Well Dressing: Dry, Intact Back: No CVA Tenderness Genitalia: Without Inflammation (s) Urine Color: Clear, Yellow Extremities: Normal: Bilateral - Plan Intake & Output: Yes Additional Information: P: Wound care. physical therapy. Psychiatry consultation - Date & Time of Note Date: 06/21/18 Time: 09:10
--- NOTE | 2018-06-21 20:39 | CP.PCM.PN ---
Subjective - Date & Time of Evaluation Date of Evaluation: 06/21/18 Time of Evaluation: 20:37 - Subjective Subjective: Patient complaining of weakness, dizziness, able only to walk a few steps. Still constipated with poor appetite and depressed. Seen by Oncolgy and Psychiatry. Patient will need subacute rehabilitation because he is living alone. Objective - Vital Signs/Intake and Output Vital Signs (last 24 hours): Temp Pulse Resp BP Pulse Ox 97.6 F 97 H 20 149/83 97 06/21/18 15:15 06/21/18 15:15 06/21/18 15:15 06/21/18 15:15 06/21/18 15:15 Intake and Output: 06/21/18 06/22/18 18:59 06:59 Intake Total 300 Output Total 1200 Balance -900 - Medications Medications: Current Medications Alprazolam (Xanax) 0.5 mg PO TID PRN PRN Reason: Anxiety Last Admin: 06/21/18 10:37 Dose: 0.5 mg Clopidogrel Bisulfate (Plavix) 75 mg PO DAILY [facility] Last Admin: 06/21/18 10:37 Dose: 75 mg Docusate Sodium (Colace) 100 mg PO TID [facility] Last Admin: 06/21/18 19:15 Dose: 100 mg Escitalopram Oxalate (Lexapro) 20 mg PO DAILY [facility] Last Admin: 06/21/18 10:37 Dose: 20 mg Lactulose (Enulose) 20 gm PO HS [facility] Last Admin: 06/20/18 21:37 Dose: 20 gm Pantoprazole Sodium (Protonix Ec Tab) 40 mg PO DAILY [facility] Last Admin: 06/21/18 10:37 Dose: 40 mg Simethicone (Mylicon Chew Tab) 80 mg PO QID [facility] Last Admin: 06/21/18 19:15 Dose: 80 mg Tamsulosin HCl (Flomax) 0.4 mg PO BID [facility] Last Admin: 06/21/18 19:15 Dose: 0.4 mg Zolpidem Tartrate (Ambien) 5 mg PO HS PRN PRN Reason: Insomnia Last Admin: 06/18/18 22:10 Dose: 5 mg - Labs Labs: 06/17/18 07:48 06/17/18 07:48 - Constitutional Appears: No Acute Distress, Chronically Ill - Head Exam Head Exam: NORMAL INSPECTION - Eye Exam Eye Exam: Normal appearance - ENT Exam ENT Exam: Normal Exam - Neck Exam Neck Exam: Normal Inspection - Respiratory Exam Respiratory Exam: Clear to Ausculation Bilateral, NORMAL BREATHING PATTERN - Cardiovascular Exam Cardiovascular Exam: REGULAR RHYTHM - GI/Abdominal Exam GI & Abdominal Exam: Distended, Hypoactive Bowel Sounds - Rectal Exam Rectal Exam: Deferred - Exam Exam: NORMAL INSPECTION - Extremities Exam Extremities Exam: Normal Inspection - Back Exam Back Exam: NORMAL INSPECTION - Neurological Exam Neurological Exam: Abnormal Gait, Alert, Awake, Oriented x3 - Psychiatric Exam Psychiatric exam: Anxious, Depressed - Skin Skin Exam: Dry, Intact, Normal Color Assessment and Plan (1) Left renal mass Assessment & Plan: S/p left nephrectomy for cancer POD#7. Status: Acute (2) Coronary artery disease Assessment & Plan: Stable. Status: Acute
[2018-06-22] MEDS: Simethicone 80 mg Chewtab PO SCH ×5 (10:44→21:18)
[2018-06-22] MEDS: Pantoprazole 40 mg EC Tab PO SCH (10:44)
--- NOTE | 2018-06-22 19:44 | CP.PCM.PN ---
Subjective - Date & Time of Evaluation Date of Evaluation: 06/22/18 Time of Evaluation: 19:42 - Subjective Subjective: Patient had 3 BM yesterday. Abdomen less distended, and less tender. Appetite better. Feels a little stronger and less dizzy. Feels nervous with Maryellen sys. Will discontinue Maryellen Sys and Lactulose. Objective - Vital Signs/Intake and Output Vital Signs (last 24 hours): Temp Pulse Resp BP Pulse Ox 98 F 103 H 20 152/68 H 95 06/22/18 15:30 06/22/18 15:30 06/22/18 15:30 06/22/18 15:30 06/22/18 15:30 - Medications Medications: Current Medications Alprazolam (Xanax) 0.5 mg PO TID PRN PRN Reason: Anxiety Last Admin: 06/21/18 22:10 Dose: 0.5 mg Clopidogrel Bisulfate (Plavix) 75 mg PO DAILY [facility] Last Admin: 06/22/18 10:44 Dose: 75 mg Docusate Sodium (Colace) 100 mg PO TID [facility] Last Admin: 06/22/18 18:34 Dose: 100 mg Escitalopram Oxalate (Lexapro) 20 mg PO DAILY [facility] Last Admin: 06/22/18 10:43 Dose: 20 mg Lactulose (Enulose) 20 gm PO HS [facility] Last Admin: 06/21/18 22:10 Dose: 20 gm Pantoprazole Sodium (Protonix Ec Tab) 40 mg PO DAILY [facility] Last Admin: 06/22/18 10:44 Dose: 40 mg Simethicone (Mylicon Chew Tab) 80 mg PO QID [facility] Last Admin: 06/22/18 18:34 Dose: 80 mg Tamsulosin HCl (Flomax) 0.4 mg PO BID [facility] Last Admin: 06/22/18 18:34 Dose: 0.4 mg Zolpidem Tartrate (Ambien) 5 mg PO HS PRN PRN Reason: Insomnia Last Admin: 06/22/18 01:22 Dose: 5 mg - Labs Labs: 06/17/18 07:48 06/17/18 07:48 - Constitutional Appears: No Acute Distress, Chronically Ill - Head Exam Head Exam: NORMOCEPHALIC - Eye Exam Eye Exam: Normal appearance Pupil Exam: NORMAL ACCOMODATION - ENT Exam ENT Exam: Normal Exam - Neck Exam Neck Exam: Normal Inspection - Respiratory Exam Respiratory Exam: Clear to Ausculation Bilateral, NORMAL BREATHING PATTERN - Cardiovascular Exam Cardiovascular Exam: REGULAR RHYTHM - GI/Abdominal Exam GI & Abdominal Exam: Soft, Hypoactive Bowel Sounds - Rectal Exam Rectal Exam: Deferred - Exam Exam: NORMAL INSPECTION - Extremities Exam Extremities Exam: Normal Inspection - Back Exam Back Exam: NORMAL INSPECTION - Neurological Exam Neurological Exam: Abnormal Gait, Alert, Awake, Oriented x3 - Psychiatric Exam Psychiatric exam: Anxious, Depressed - Skin Skin Exam: Dry, Intact, Normal Color Assessment and Plan (1) Left renal mass Assessment & Plan: S/p left nenephrectomy for a renal carcinoma. POD# 8, doing better. To continue PT. For subacute rehab. Status: Acute (2) Coronary artery disease Assessment & Plan: stable. Status: Chronic
--- NOTE | 2018-06-22 20:50 | PCM.URO ---
Urology Progress Note - General General: Tolerating Diet - Subjective Abdominal Pain: Yes (difficulty w BM) Flank Pain: No Nausea: Yes (occ) Vomiting: No Voiding Well: Yes Dysuria: No Hematuria: No Dsypnea: No Chest Pain: No Fever & Chills: No Other: generally feeling weak, anxious. Does not appear to function well. Not able or willing to walk - Objective Lab Results Last 24 Hours: Laboratory Results - last 24 hr 06/22/18 08:31 Ferritin 113.0 Lactate Dehydrogenase 410 Vitamin B12 554 Intake & Output: Intake & Output 06/22/18 06/22/18 06/23/18 06:59 18:59 06:59 Output Total 600 Balance -600 Output: Urine 600 Urine, Voided 600 Other: # Voids Urine, Voided 3 Vital Signs: Vital Signs - 24 hr 06/21/18 06/22/18 06/22/18 23:50 08:32 15:30 Temperature 97.3 F L 97.5 F L 98 F Pulse Rate 103 H 97 H 103 H Respiratory 20 20 20 Rate Blood Pressure 114/63 144/86 152/68 H O2 Sat by Pulse 96 97 95 Oximetry - Physical Exam Abdominal Exam: Soft, Non-Tender, Non-Distended Bowel Sounds: Normal Wound: Clean, Healing Well Back: No CVA Tenderness Genitalia: Without Inflammation Urine Color: Clear, Yellow - Male Scrotum: Normal - Plan Additional Information: IMP: progressing, but slowly. P: physical therapy. encourage increased activity - Date & Time of Note Date: 06/22/18 Time: 20:50
[2018-06-23] MEDS: Simethicone 80 mg Chewtab PO SCH ×4 (11:06→23:15)
[2018-06-23] MEDS: Pantoprazole 40 mg EC Tab PO SCH (11:07)
[2018-06-23 12:04] LABS: BASO # 0.1 K/uL (0.0-0.2); EOS # 0.5 K/uL (0.0-0.7); EOS % 6.7 % (0.0-4.0); HEMOGLOBIN 11.5 g/dL (12.0-18.0); LYMPH # 1.7 K/uL (1.0-4.3); LYMPH % 22.9 % (20.0-40.0); MEAN CELL VOLUME 69.6 fL (80.0-94.0); MEAN CORPUSCULAR HEMOGLOBIN 21.7 pg (27.0-31.0); MEAN CORPUSCULAR HGB CONC 31.1 g/dL (33.0-37.0); MEAN PLATELET VOLUME 7.6 fL (7.2-11.7); MONO # 0.7 K/uL (0.0-0.8); MONO % 9.4 % (0.0-10.0); NEUT # 4.4 K/uL (1.8-7.0); NRBC % 0.1 % (0.0-2.0); RBC 5.3 Mil/uL (4.40-5.90); RED CELL DISTRIBUTION WIDTH 18.4 % (11.5-14.5); WHITE BLOOD COUNT 7.4 K/uL (4.8-10.8)
[2018-06-23 12:48] LABS: BLOOD UREA NITROGEN 18 mg/dL (9-20); CALCIUM 9.6 mg/dl (8.6-10.4); GFR NON-AFRICAN AMERICAN > 60
--- NOTE | 2018-06-23 20:42 | CP.PCM.PN ---
Subjective - Date & Time of Evaluation Date of Evaluation: 06/23/18 Time of Evaluation: 20:39 - Subjective Subjective: Patient's appetite improving. Had BM today. Afebrile. Undecided whether he should go to sub-acute rehab or not. Objective - Vital Signs/Intake and Output Vital Signs (last 24 hours): Temp Pulse Resp BP Pulse Ox 97.9 F 80 20 193/84 H 98 06/23/18 15:00 06/23/18 15:00 06/23/18 15:00 06/23/18 15:00 06/23/18 15:00 Intake and Output: 06/23/18 06/24/18 18:59 06:59 Intake Total 400 Output Total 1000 Balance -600 - Medications Medications: Current Medications Alprazolam (Xanax) 0.5 mg PO TID PRN PRN Reason: Anxiety Last Admin: 06/23/18 17:05 Dose: 0.5 mg Clopidogrel Bisulfate (Plavix) 75 mg PO DAILY [facility] Last Admin: 06/23/18 11:06 Dose: 75 mg Docusate Sodium (Colace) 100 mg PO TID [facility] Last Admin: 06/23/18 18:40 Dose: 100 mg Escitalopram Oxalate (Lexapro) 20 mg PO DAILY [facility] Last Admin: 06/23/18 11:06 Dose: 20 mg Pantoprazole Sodium (Protonix Ec Tab) 40 mg PO DAILY [facility] Last Admin: 06/23/18 11:07 Dose: 40 mg Simethicone (Mylicon Chew Tab) 80 mg PO QID [facility] Last Admin: 06/23/18 18:41 Dose: 80 mg Tamsulosin HCl (Flomax) 0.4 mg PO BID [facility] Last Admin: 06/23/18 18:41 Dose: 0.4 mg Zolpidem Tartrate (Ambien) 5 mg PO HS PRN PRN Reason: Insomnia Last Admin: 06/22/18 23:42 Dose: 5 mg - Labs Labs: 06/23/18 11:37 06/23/18 12:31 - Constitutional Appears: No Acute Distress, Chronically Ill - Head Exam Head Exam: NORMAL INSPECTION - Eye Exam Eye Exam: Normal appearance - ENT Exam ENT Exam: Normal Exam - Neck Exam Neck Exam: Normal Inspection - Respiratory Exam Respiratory Exam: Clear to Ausculation Bilateral, NORMAL BREATHING PATTERN - Cardiovascular Exam Cardiovascular Exam: REGULAR RHYTHM - GI/Abdominal Exam GI & Abdominal Exam: Soft, Normal Bowel Sounds - Rectal Exam Rectal Exam: Deferred - Extremities Exam Extremities Exam: Normal Inspection - Back Exam Back Exam: NORMAL INSPECTION - Neurological Exam Neurological Exam: Alert, Awake, Oriented x3 - Psychiatric Exam Psychiatric exam: Anxious - Skin Skin Exam: Dry, Intact, Normal Color, Warm Assessment and Plan (1) Left renal mass Assessment & Plan: S/p robot-assisted left nephrectomy for a carcinoma. POD# 9. Doing better. Status: Acute (2) Coronary artery disease Status: Chronic
[2018-06-24] MEDS: Pantoprazole 40 mg EC Tab PO SCH (09:05)
[2018-06-24] MEDS: Simethicone 80 mg Chewtab PO SCH ×4 (09:05→22:56)
--- NOTE | 2018-06-24 21:24 | PCM.URO ---
Urology Progress Note - General General: No Complaints - Subjective Abdominal Pain: No Flank Pain: No Nausea: No Vomiting: No Voiding Well: Yes Dysuria: No Hematuria: No Urinary Urgency: No Frequency: No Good Stream: Yes Dsypnea: No Chest Pain: No Fever & Chills: No - Objective Lab Studies: Reviewed (CREAT=1.0 HCT=36.9) Intake & Output: Intake & Output 06/24/18 06/24/18 06/25/18 06:59 18:59 06:59 Intake Total 600 Output Total 1150 Balance -550 Intake: Oral 600 Output: Urine 1150 Urine, Voided 1150 Vital Signs: Vital Signs - 24 hr 06/23/18 06/24/18 23:23 15:10 Temperature 97.6 F 97.9 F Pulse Rate 85 95 H Respiratory 20 20 Rate Blood Pressure 170/88 H 161/90 H O2 Sat by Pulse 98 98 Oximetry - Physical Exam Abdominal Exam: Soft, Non-Tender, Non-Distended Wound: Clean, Healing Well Back: No CVA Tenderness Genitalia: Without Inflammation Urine Color: Clear, Yellow Extremities: Normal: Bilateral - Plan Wound Care: Yes ( skin marina removed. steristrips applied) Catheter Care: Yes Additional Information: IMP: progressing well. still not taking care of himself well. in better spirits overall. Results and finding reviewed w pt. - Date & Time of Note Date: 06/24/18 Time: 21:24
[2018-06-25 08:49] VITALS: O2SAT 96
[2018-06-25] MEDS: Pantoprazole 40 mg EC Tab PO SCH (10:37)
[2018-06-25] MEDS: Simethicone 80 mg Chewtab PO SCH ×3 (10:37→21:03)
[2018-06-25 17:17] VITALS: BP 148/86; PULSE 101; TEMP 97.5
--- NOTE | 2018-06-25 18:48 | PCM.URO ---
Urology Progress Note - General General: Tolerating Diet (FEELING BETTER OVERALL. WEAK) - Subjective Abdominal Pain: No Flank Pain: No Nausea: No Vomiting: No Voiding Well: Yes Dysuria: No Hematuria: No Good Stream: Yes Weak Stream: Yes Chest Pain: No Fever & Chills: No - Objective Lab Studies: Reviewed (HCT=36.9 CREAT=1.0) Intake & Output: Intake & Output 06/24/18 06/25/18 06/25/18 18:59 06:59 18:59 Output Total 1000 Balance -1000 Output: Urine 1000 Urine, Voided 1000 Other: # Bowel Movements 1 Vital Signs: Vital Signs - 24 hr 06/25/18 06/25/18 08:48 15:15 Temperature 97.8 F 97.5 F L Pulse Rate 83 101 H Respiratory 20 20 Rate Blood Pressure 129/73 148/86 O2 Sat by Pulse 96 96 Oximetry - Physical Exam Abdominal Exam: Soft, Non-Tender, Non-Distended Back: No CVA Tenderness Extremities: Normal: Bilateral - Plan Wound Care: Yes Ambulation - Out of Bed: Yes Intake & Output: Yes Additional Information: IMP: PROGRESSING WELL P NEPHRECTOMY. STAGE 3 RCC, SAULO GRADE 3. P: CONSIDER FOR ADJUVANT THERAPY. OUTPATIENT F/U. DISCUSSED W PT AND FRIEND AND W NURSING STAFF. DISCHARGE PLANNING. YS - Date & Time of Note Date: 06/25/18 Time: 12:45
--- NOTE | 2018-06-25 19:36 | CP.PCM.PN ---
Subjective - Date & Time of Evaluation Date of Evaluation: 06/25/18 Time of Evaluation: 19:33 - Subjective Subjective: Patient has no complaint, is being discharged to [facility] . Objective - Vital Signs/Intake and Output Vital Signs (last 24 hours): Temp Pulse Resp BP Pulse Ox 97.5 F L 101 H 20 148/86 96 06/25/18 15:15 06/25/18 15:15 06/25/18 15:15 06/25/18 15:15 06/25/18 15:15 Intake and Output: 06/25/18 06/26/18 18:59 06:59 Output Total 1000 Balance -1000 - Medications Medications: Current Medications Alprazolam (Xanax) 0.5 mg PO TID PRN PRN Reason: Anxiety Last Admin: 06/25/18 15:05 Dose: 0.5 mg Clopidogrel Bisulfate (Plavix) 75 mg PO DAILY [facility] Last Admin: 06/25/18 10:37 Dose: 75 mg Docusate Sodium (Colace) 100 mg PO TID [facility] Last Admin: 06/25/18 14:17 Dose: Not Given Escitalopram Oxalate (Lexapro) 20 mg PO DAILY [facility] Last Admin: 06/25/18 10:37 Dose: 20 mg Pantoprazole Sodium (Protonix Ec Tab) 40 mg PO DAILY [facility] Last Admin: 06/25/18 10:37 Dose: 40 mg Simethicone (Mylicon Chew Tab) 80 mg PO QID [facility] Last Admin: 06/25/18 14:17 Dose: 80 mg Tamsulosin HCl (Flomax) 0.4 mg PO BID [facility] Last Admin: 06/25/18 10:37 Dose: 0.4 mg Zolpidem Tartrate (Ambien) 5 mg PO HS PRN PRN Reason: Insomnia Last Admin: 06/24/18 22:55 Dose: 5 mg - Labs Labs: 06/23/18 11:37 06/23/18 12:31 - Constitutional Appears: No Acute Distress, Chronically Ill - Head Exam Head Exam: NORMAL INSPECTION - Eye Exam Eye Exam: Normal appearance Pupil Exam: NORMAL ACCOMODATION - ENT Exam ENT Exam: Normal Exam - Neck Exam Neck Exam: Normal Inspection - Respiratory Exam Respiratory Exam: Clear to Ausculation Bilateral, NORMAL BREATHING PATTERN - Cardiovascular Exam Cardiovascular Exam: REGULAR RHYTHM - GI/Abdominal Exam GI & Abdominal Exam: Soft, Normal Bowel Sounds - Rectal Exam Rectal Exam: Deferred - Back Exam Back Exam: NORMAL INSPECTION - Neurological Exam Neurological Exam: Abnormal Gait, Alert, Awake, Oriented x3 - Psychiatric Exam Psychiatric exam: Anxious, Depressed - Skin Skin Exam: Dry, Intact, Normal Color, Warm Assessment and Plan (1) Left renal mass Assessment & Plan: 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 POD# 10. Doing well. No adjuvant therapy as per Oncology. For discharge to subacute rehabilitation. Status: Resolved (2) Coronary artery disease Assessment & Plan: Stable. Status: Chronic
== END 2018-06-25 21:45 | disposition home or self-care (01) | DRG 657 ==
LOC: C.SDS 06:37 → C.9S 10:57 → C.6T 18:07
PROVIDERS: ADMIT Urology; ATTEND Urology
PROC: 0TT14ZZ Resection of Left Kidney, Percutaneous Endoscopic Approach (ICD-10-PCS; principal; 2018-06-14 08:30)
DX: C64.2 Malignant neoplasm of left kidney, except renal pelvis (principal); I82.3 Embolism and thrombosis of renal vein; K56.7 Ileus, unspecified; F32.9 Major depressive disorder, single episode, unspecified; I25.10 Atherosclerotic heart disease of native coronary artery without angina pectoris; J43.9 Emphysema, unspecified; K58.9 Irritable bowel syndrome, unspecified; N18.9 Chronic kidney disease, unspecified; Z87.891 Personal history of nicotine dependence; E78.00 Pure hypercholesterolemia, unspecified; Z95.5 Presence of coronary angioplasty implant and graft